=== PATIENT | female | born 1960 | race Caucasian/White ===

== ENCOUNTER 2025-01-30 08:41 | Outpatient (CLI) | payer OTHER, SELFPAY ==
--- NOTE | 2025-01-30 10:17 | P.ANES_ITS ---
Anesthesia Charges Start Date/Time Anesthesia Start Date: 01/30/25 Anesthesia Start Time: 09:53 Stop Date/Time Anesthesia Stop Date: 01/30/25 Anesthesia Stop Time: 10:15 Coding CPT Codes CPT Codes: HOMER LWR INTST NDSC NOS - [id number] ([id number]) P2 - PATIENT W/MILD SYST DISEASE, QK - SCHOOL AGE LEAD TEACHER 2-4 CNCRNT ANES PROC, QX - BRASS AND WIND INSTRUMENT REPAIRER SVC W/ MD MED DIRECTION
--- NOTE | 2025-01-30 10:17 | W.ANESCHARGE ---
Anesthesia Charges Start Date/Time Anesthesia Start Date: 01/30/25 Anesthesia Start Time: 09:53 Stop Date/Time Anesthesia Stop Date: 01/30/25 Anesthesia Stop Time: 10:15 Coding CPT Codes CPT Codes: HOMER LWR INTST NDSC NOS - [id number] ([id number]) P2 - PATIENT W/MILD SYST DISEASE, QK - RAD TECH 2-4 CNCRNT ANES PROC, QX - CONCRETE BOOM PUMP OPERATOR SVC W/ MD MED DIRECTION
--- NOTE | 2025-01-30 11:34 | P.ANES_ITS ---
Anesthesia Charges Start Date/Time Anesthesia Start Date: 01/30/25 Anesthesia Start Time: 09:53 Stop Date/Time Anesthesia Stop Date: 01/30/25 Anesthesia Stop Time: 10:15 Coding CPT Codes CPT Codes: HOMER LWR INTST NDSC NOS - [id number] ([id number]) QK - BUILDING CONSTRUCTION TEACHER 2-4 CNCRNT HOMER PROC, QX - SPRAY DYER SVC W/ MD MED DIRECTION, P2 - PATIENT W/MILD SYST DISEASE
--- NOTE | 2025-01-30 11:34 | W.ANESCHARGE ---
Anesthesia Charges Start Date/Time Anesthesia Start Date: 01/30/25 Anesthesia Start Time: 09:53 Stop Date/Time Anesthesia Stop Date: 01/30/25 Anesthesia Stop Time: 10:15 Coding CPT Codes CPT Codes: HOMER LWR INTST NDSC NOS - [id number] ([id number]) QK - FLIGHT ATTENDANT RAMP 2-4 CNCRNT HOMER PROC, QX - SUPERVISOR SPECIAL EDUCATION SVC W/ MD MED DIRECTION, P2 - PATIENT W/MILD SYST DISEASE
== END 2025-01-30 08:42 | disposition home or self-care (01) ==
LOC: OP CLINIC 08:44
PROVIDERS: PCP Family Medicine; Visit Provider Surgery
DX: Z12.11 Encounter for screening for malignant neoplasm of colon (principal); D12.2 Benign neoplasm of ascending colon
CPT/HCPCS: 00811; 00812; 45385; 88305; J2704